=== PATIENT | female | born 1990 | race Caucasian/White ===

== ENCOUNTER 2022-02-26 13:44 | Emergency (ER) | payer BC, SELFPAY ==
[2022-02-26 14:01] VITALS: BP 108/84; PULSE 90; RESP 16; TEMP 36.2; O2SAT 97; BMI 27.4
[2022-02-26 14:20] VITALS: PULSE 94; O2SAT 97
--- NOTE | 2022-02-26 14:22 | ED.GENADULT ---
HPI - General Adult General Date Seen: 02/26/22 Chief complaint: Cough Stated complaint: Difficulty breathing Time Seen by Provider: 02/26/22 13:55 Source: patient History of Present Illness HPI narrative: Patient is a 31-year-old with underlying asthma who presents with cough for several days. She has felt increasingly short of breath, she says that with any activity she gets winded and is not able to take a deep breath. She is having trouble sleeping because she wakes up feeling like she can not take a deep breath because of coughing. She has not had any fevers. She has not had chest pain. She has not had ill exposures that she knows of. She has been using her inhaler for 5 times a day, typically she needs it only once a day if that. She does have a history of hospitalizations for asthma but not since she was a kid. She has had nasal congestion and runny nose as well. She also notes that for the past 6 months on and off she has had some redness, irritation and itching as well as some weepiness to both of her eyes. She does not wear contacts. She says she has tried some oral allergy medications as she does have a history of allergies as well but this was not helpful. She did have some old antibiotic eyedrops and she said that those seemed to help although when she stopped using them symptoms came back. She has not had any green or yellow mattering. No visual complaints, photophobia, or eye pain. She believes this is an unrelated problem as it has been going on for quite some time, although she did think that her respiratory symptoms at 1st were allergy related. However, since they seem to be getting worse she thought that she should be checked out. Related Data Previous Rx's Medication Instructions Recorded albuterol sulfate 2.5 mg/3 mL 2.5 mg (3 mL) inhalation Q4-6H PRN 02/26/22 (0.083 %) solution for nebulization #75 mL albuterol sulfate 90 mcg/actuation 2 puff inhalation Q4-6H PRN 02/26/22 aerosol inhaler shortness of breath or wheezing #6.7 grams olopatadine 0.2 % eye drops 1 drp ophthalmic (eye) DAILY #2.5 02/26/22 (Pataday Once Daily Relief) mL prednisone 20 mg tablet 20 mg PO BID #10 tabs 02/26/22 Review of Systems Status of ROS: Reports: 10 or more systems reviewed and unremarkable except as noted in History and below [facility] Social History Smoking Status: Current every day smoker What tobacco products do you use: cigarettes Smoking packs per day: 0.5 Smoking cigarettes per day: 10.0 How often do you have a drink containing alcohol: never How often do you have six or more drinks on one occasion: Never AUDIT-C Alcohol total score: 0 Non-prescribed substance use: denies use Exam Narrative: Exam Narrative: Vital signs as noted above. In general, an alert, nontoxic woman. Breathing easily, speaks in full sentences. Head: Normocephalic, atraumatic. Eyes: Pupils are equal reactive. Extraocular movements are full. Conjunctiva are mildly injected, no mattering.. ENT: Mucous membranes are moist. Throat is normal. Nares are congested. Neck: Supple without lymphadenopathy. No stridor. Heart: Regular rate and rhythm. No murmur or rub. Lungs: Bilateral scattered wheezes, no crackles. No increased work of breathing. Extremities: Well perfused. No edema. No calf tenderness. Pulses intact. Neurologic: Patient is alert and oriented to person and place. Speech is fluent. Face is symmetric. Moves all extremities equally. Affect: Normal. Skin: Warm and dry. Well perfused. Const: Vital Signs, click to edit/add: Vital Signs - 24 hr 02/26/22 14:01 02/26/22 14:20 02/26/22 14:57 Temperature 97.2 F L Pulse Rate [Pulse Oximeter] 90 94 86 Respiratory Rate 16 Blood Pressure [[facility]] 108/84 Pulse Oximetry 97 97 95 Oxygen Delivery Me thod Room Air Room Air Room Air Documenting provider has reviewed patient's vital signs: yes Course Course Hospital Course: Patient says that she used her inhaler prior to coming here, she remains somewhat wheezy so will go ahead and give her a DuoNeb. She does think that she would do better using a nebulizer at home rather than her inhaler. I am giving her prednisone 60 mg orally as well. Regarding her eyes, given the duration of symptoms and the somewhat sporadic nature, I do think this is probably related to allergies. I think it is reasonable to put her on some eyedrops for allergies and see if that is helpful for her. If not, I recommended follow-up with an participant administrator. I do not think she needs imaging of her chest here today, her O2 sats are normal at 97, she is not febrile. She declines testing for COVID/flu/RSV. Symptomatically she feels improved after the nebulizer, she would like to have access to that at home. She still has some wheezing although it has improved and she is moving air better. I do think she will improve on prednisone although I will give her a prescription for a nebulizer as well. She also asked for refill on her inhaler which I provided. She does smoke, she is minimizing cigarettes at this time which I think is likewise a good idea. Return for worsening. Anticipate gradual improvement over the coming week. Primary care follow-up if no improvement over the next 2 weeks. Vital Signs Vital signs: Initial Vital Signs Temperature 97.2 F L 02/26/22 14:01 Temperature Source Tympanic 02/26/22 14:01 Pulse Rate 90 02/26/22 14:01 Pulse Rhythm 02/26/22 14:01 Respiratory Rate 16 02/26/22 14:01 Blood Pressure 108/84 02/26/22 14:01 Blood Pressure Mean 92 02/26/22 14:01 Blood Pressure Position Sitting 02/26/22 14:01 Pulse Oximetry 97 02/26/22 14:01 Oxygen Delivery Method 02/26/22 14:01 Vital Signs Temperature 97.2 F L 02/26/22 14:01 Pulse Rate 90 02/26/22 14:01 Respiratory Rate 16 02/26/22 14:01 Blood Pressure 108/84 02/26/22 14:01 Pulse Oximetry 97 02/26/22 14:01 Oxygen Delivery Method 02/26/22 14:01 Temperature 97.2 F L 02/26/22 14:01 Pulse Rate 86 02/26/22 14:57 Respiratory Rate 16 02/26/22 14:01 Blood Pressure 108/84 02/26/22 14:01 Pulse Oximetry 95 02/26/22 14:57 Oxygen Delivery Method 02/26/22 14:57 Discharge Plan Discharge Clinical Impression: Bronchitis Patient Disposition: Home, Self-Care Condition: Improved Instructions: Acute Bronchitis (ED) Additional Instructions: Continue albuterol either by inhaler or nebulizer as needed. Prednisone as prescribed. Return for worsening. Eyedrops as prescribed, if not improving, follow-up with ophthalmology. Prescriptions: New olopatadine [Pataday Once Daily Relief] 0.2 % drops 1 drp ophthalmic (eye) DAILY Qty: 2.5 0RF albuterol sulfate 90 mcg/actuation HFA aerosol inhaler 2 puff inhalation Q4-6H PRN (Reason: shortness of breath or wheezing) Qty: 6.7 0RF albuterol sulfate 2.5 mg /3 mL (0.083 %) solution for nebulization 2.5 mg inhalation Q4-6H PRNQty: 75 0RF prednisone 20 mg tablet 20 mg PO BID Qty: 10 0RF Follow Up/Referrals: Luis Mercado MD [Primary Care Provider] - Stand Alone Forms: [employer] Info Instructions
[2022-02-26] MEDS: IPRAT-ALBUT 0.5-2.5 MG/3 ML NEB 1 NEB IH (14:27)
[2022-02-26] MEDS: predniSONE 20 MG TABLET 60 MG PO (14:31)
[2022-02-26 14:57] VITALS: PULSE 86; O2SAT 95
== END 2022-02-26 15:19 | disposition home or self-care (01) ==
PROVIDERS: Emergency Provider Emergency Medicine; PCP Family Medicine
DX: J40 Bronchitis, not specified as acute or chronic (principal); Z72.0 Tobacco use
CPT/HCPCS: 94640; 99283; J7512